=== PATIENT | male | born 1995 | race Caucasian/White ===

== ENCOUNTER 2019-03-02 08:34 | Inpatient (IN) | payer OTHER ==
[2019-03-02 08:57] VITALS: BP 116/72; PULSE 72; TEMP 97.2; BMI 24.0
--- NOTE | 2019-03-02 09:29 | HP ---
"COWS - Scale Resting Pulse: 0= UT 80 or Below Sweatin= Chills/Flushing Restless Observation: 3= Extraneous Movement Pupil Size: 0= Normal to Room Light Bone or Joint Aches: 2= Severe Diffuse Aches Runny Nose/ Eye Tearin= Runny Nose/Eyes GI Upset > 30mins: 2= Nausea/Diarrhea Tremor Observation: 0= None Yawning Observation: 0= None Anxiety or Irritability: 2=Irritable/Anxious Goose Flesh Skin: 0=Smooth Skin COWS Score: 12 CIWA Score - Admission Criteria [facility]ASAS Guidelines: Admission for Medically Managed Detox: Requires at least one of the followin. CIWA greater than 12 2. Seizures within the past 24 hours 3. Delirium tremens within the past 24 hours 4. Hallucinations within the past 24 hours 5. Acute intervention needed for co occurring medical disorder 6. Acute intervention needed for co occurring psychiatric disorder 7. Severe withdrawal that cannot be handled at a lower level of care (continued vomiting, continued diarrhea, abnormal vital signs) requiring intravenous medication and/or fluids 8. Admission ROS [facility] Chief Complaint: i want to get clean Allergies/Adverse Reactions: Allergies Allergy/AdvReac Type Severity Reaction Status Date / Time No Known Allergies Allergy Verified 03/02/19 08:50 History of Present Illness: pt here requesting detox from heroin use , reports 1 gr daily , first age of use 18 , has been in detox x 2 , most recently reportedly 1 yr ago , denies OD , IVDU in [facility] , needles from the pharmacy , denies sharing , + re-using , denies abscess . cannabis - denies regular use , fentanyl - denies oxycodone - denies bzo - denies etoh - denies tobacco : 1/2 ppd- 1 ppd , first age of use 18 pmhx/pshx / psych : insomnia meds : seroquel shx : lives w/ mother , unemployed , on probation . This report was requested by: Evette Oropeza | Reference #: [id number] Others' Prescriptions Patient Name: Gatito Tse Date: 1995 Address: [address] [place] [address] Sex: Male Rx Written Rx Dispensed Drug Quantity Days Supply Prescriber Name 02/17/2019 02/17/2019 lorazepam 1 mg tablet 60 30 Jackie Hall (Dnp) 01/13/2019 01/13/2019 lorazepam 1 mg tablet 60 30 Jackie Hall (Dnp) 12/25/2018 12/29/2018 buprenorphine-naloxone 2-0.5 mg sl film 14 7 Omid M D, Zeiad 12/14/2018 12/14/2018 buprenorphine-naloxone 8-2 mg sl tablet 7 7 Omid M D, Zeiad 12/02/2018 12/02/2018 buprenorphine 2 mg tablet sl 28 14 Omid M D, Zeiad 10/06/2018 10/06/2018 suboxone 8 mg-2 mg sl film 30 30 Omid M D, Zeiad M D 09/04/2018 09/04/2018 suboxone 8 mg-2 mg sl film 30 30 Omid M D, Zeiad M D 07/27/2018 07/27/2018 suboxone 8 mg-2 mg sl film 14 14 Omid M D, Zeiad M D 07/08/2018 07/08/2018 suboxone 8 mg-2 mg sl film 1 1 Omid M D , Zeiad M D Patient Name: Gatito Tse Date: 1995 Address: [place] [address] Sex: Male Rx Written Rx Dispensed Drug Quantity Days Supply Prescriber Name 08/06/2018 08/09/2018 suboxone 8 mg-2 mg sl film 30 30 Omid M D, Zeiad M D 07/16/2018 07/16/2018 suboxone 8 mg-2 mg sl film 14 14 Omid M D, Zeiad M D 07/09/2018 07/09/2018 suboxone 8 mg-2 mg sl film 7 7 Omid M D , Zeiad M D pt claims he has not followed up with Suboxone as he relapsed , does not think prescriber will continue rx . Claims was given rx for Lorazepam and did not take it . Exam Limitations: No Limitations - Ebola screening Have you traveled outside of the country in the last 21 days: No Have you had contact with anyone from an Ebola affected area: No Do you have a fever: No - Review of Systems Constitutional: See HPI EENT: reports: See HPI Respiratory: reports: No Symptoms reported Cardiac: reports: No Symptoms Reported GI: reports: Diarrhea : reports: No Symptoms Reported Musculoskeletal: reports: See HPI Integumentary: reports: See HPI Neuro: reports: No Symptoms reported Endocrine: reports: No Symptoms Reported Psychiatric: reports: Orientated x3, Agitated, Anxious Patient History - Smoking Cessation Smoking history: Current every day smoker Have you smoked in the past 12 months: Yes Hx Chewing Tobacco Use: No Initiated information on smoking cessation: No - Substances abused Heroin Substance route: Injection Frequency: Daily Amount used: 1 gram Age of first use: 18 Date of last use: 03/01/19 Family Disease History - Family Disease History Family History: Denies Admission Physical Exam BHS - Vital Signs Vital Signs: Vital Signs - 24 hr 03/02/19 03/02/19 08:52 09:19 Temperature 97.2 F L 97.2 F L Pulse Rate 72 72 Respiratory 16 16 Rate Blood Pressure 116/72 116/72 - Physical General Appearance: Yes: Disheveled, Mild Distress HEENTM: Yes: Hearing grossly Normal, Normocephalic, Normal Voice Respiratory: Yes: Chest Non-Tender, Lungs Clear, Normal Breath Sounds, No Respiratory Distress, No Accessory Muscle Use Cardiology: Yes: Regular Rhythm, Regular Rate, S1, S2 Abdominal: Yes: Non Tender, Soft Musculoskeletal: Yes: Gait Steady Extremities: Yes: Normal Range of Motion, Non-Tender Neurological: Yes: Fully Oriented, Alert, Motor Strength 5/5 Integumentary: Yes: Warm, Track Davis - Diagnostic (1) Opioid dependence Current Visit: Yes Status: Acute Qualifiers: Substance use status: in withdrawal Qualified Code(s): F11.23 - Opioid dependence with withdrawal (2) Nicotine dependence Current Visit: Yes Status: Acute Qualifiers: Nicotine product type: cigarettes (3) Episodic cannabis use Current Visit: Yes Status: Chronic Urine Drug Screen - Test Device Lot number: [id number] Expiration date: 12/08/20 - Control Is test valid?: Yes - Results Drug screen NEGATIVE: No Urine drug screen results: THC-Marijuana, FEN-Fentanyl, MOP-Opiates, OXY- Oxycodone, BZO-Benzodiazepines Inpatient Rehab Admission - Rehab Decision to Admit Inpatient rehab admission?: No"
[2019-03-02] MEDS ORDERED: hydrOXYzine HCL 25 MG TABLET (FP) PO PRN (09:40)
[2019-03-02] MEDS ORDERED: BISMUTH SUBSALICYLATE 262 MG/15 ML BTL PO PRN (09:40)
[2019-03-02] MEDS ORDERED: MENTHOL/PHENOL 1 EACH UD MM PRN (09:40)
[2019-03-02] MEDS ORDERED: NICOTINE POLACRILEX 2 MG GUM BUC PRN (09:40)
[2019-03-02] MEDS ORDERED: ACETAMINOPHEN 325 MG TABLET (FP) PO PRN ×2 (09:40)
[2019-03-02] MEDS ORDERED: IBUPROFEN 400 MG TABLET (FP) PO PRN (09:40)
[2019-03-02] MEDS ORDERED: MAG HYDROX/AL HYDROX/SIMETH 30 ML UNIT-DOSE CUP PO PRN (09:40)
[2019-03-02] MEDS ORDERED: MELATONIN 5 MG TABLETS PO PRN (09:40)
[2019-03-02] MEDS ORDERED: MAGNESIUM CITRATE 300 ML BOTTLE PO PRN (09:40)
[2019-03-02] MEDS ORDERED: MAGNESIUM HYDROX 2400MG/30ML ORAL SUSPENSION 30 ML CUP PO PRN (09:40)
[2019-03-02] MEDS ORDERED: METHOCARBAMOL 500 MG TABLET PO PRN (09:40)
[2019-03-02] MEDS ORDERED: cloNIDine HCL 0.1 MG TABLET PO PRN (09:41)
[2019-03-02] MEDS ORDERED: PRENATAL VITAMINS W/ FOLIC ACID TABLET (FP) PO SCH (10:00)
[2019-03-02] MEDS ORDERED: METHADONE HCL 10 MG TABLET (FOR DETOX USE ONLY) PO ONE (10:15)
--- NOTE | 2019-03-02 12:05 | PN ---
[facility] Progress Note Note: pt just arrived to the unit and is stating he is not ready doesn't like it here. all efforts to assist pt with trying to have pt give detox a chance is not working. pt was reminded of risk of relapse,seizure, OD, /loss, pt chose to sign out AMA.
--- NOTE | 2019-03-02 14:19 | DS ---
[facility] Detox Discharge Summary Admission Date: 03/02/19 Discharge Date: 03/02/19 - History Present History: Opioid Dependence - Physical Exam Results Vital Signs: Vital Signs Temperature 97.2 F L 03/02/19 09:19 Pulse Rate 72 03/02/19 09:19 Respiratory Rate 16 03/02/19 09:19 Blood Pressure 116/72 03/02/19 09:19 O2 Sat by Pulse Oximetry (%) Pertinent Admission Physical Exam Findings: pt arrived in withdrawal sx no labs were drawn o - Treatment Patient has Accepted a Rehab Referral to: pt declined - Medication Discharge Medications: Ambulatory Orders Quetiapine Fumarate [Seroquel -] 50 mg PO DAILY 03/02/19 Quetiapine Fumarate [Seroquel -] 150 mg PO HS 03/02/19 - Diagnosis (1) Nicotine dependence Status: Acute Qualifiers: Nicotine product type: cigarettes Substance use status: uncomplicated Qualified Code(s): F17.210 - Nicotine dependence, cigarettes, uncomplicated (2) Opioid dependence Status: Chronic Qualifiers: Substance use status: uncomplicated Qualified Code(s): F11.20 - Opioid dependence, uncomplicated (3) Episodic cannabis use Status: Chronic - AMA Did Patient Leave Against Medical Advice: Yes (going home)
[2019-03-02 14:36] LABS: HEMATOCRIT 38.3 % (35.4-49); HEMOGLOBIN 12.8 GM/dL (11.7-16.9); MCH 28.4 pg (25.7-33.7); MCHC 33.4 g/dl (32.0-35.9); MEAN CELL VOLUME 84.9 fl (80-96); MEAN PLT VOLUME 8.1 fl (7.5-11.1); PLATELET COUNT 353 K/MM3 (134-434); RBC 4.51 M/mm3 (4.00-5.60); RDW 14.4 % (11.9-15.9); WHITE BLOOD COUNT 7.7 K/mm3 (4.0-10.0)
[2019-03-02 14:47] LABS: ALBUMIN 4.3 g/dl (3.4-5.0); BILIRUBIN,TOTAL 0.5 mg/dL (0.2-1); BLOOD UREA NITROGEN 18.9 mg/dL (7-18); CALCIUM 9.6 mg/dL (8.5-10.1); CREATININE 1.1 mg/dL (0.55-1.3); POTASSIUM 4.2 mmol/L (3.5-5.1); TOT PROT 7.9 g/dl (6.4-8.2)
[2019-03-02] MEDS ORDERED: THIAMINE HCL 100 MG TABLET (FP) PO SCH (22:00)
[2019-03-03] MEDS ORDERED: METHADONE (DETOX) 20 MG, METHADONE (DETOX) 5 MG PO ONE (10:00)
[2019-03-04] MEDS ORDERED: METHADONE HCL 10 MG TABLET (FOR DETOX USE ONLY) PO ONE (10:00)
[2019-03-05] MEDS ORDERED: METHADONE (DETOX) 10 MG, METHADONE (DETOX) 5 MG PO ONE (10:00)
[2019-03-06] MEDS ORDERED: METHADONE HCL 10 MG TABLET (FOR DETOX USE ONLY) PO ONE (10:00)
[2019-03-07] MEDS ORDERED: METHADONE HCL 5 MG TABLET (FOR DETOX USE ONLY) PO ONE (06:00)
== END 2019-03-02 12:25 | disposition left against medical advice (07) | DRG 770 ==
LOC: YASAS 08:34 → Y6N 10:12
PROVIDERS: ADMIT Surgery; ATTEND Surgery
PROC: HZ2ZZZZ Detoxification Services for Substance Abuse Treatment (ICD-10-PCS; principal; 2019-03-02)
DX: F11.23 Opioid dependence with withdrawal (principal); F12.90 Cannabis use, unspecified, uncomplicated; F17.210 Nicotine dependence, cigarettes, uncomplicated
CPT/HCPCS: 36415; 80053; 85027; 86480; 86593